=== PATIENT | female | born 1990 | race Two or more races ===

== ENCOUNTER 2022-06-19 07:16 | Outpatient (CLI) | payer OTHER | END 2022-06-19 07:18 | disposition home or self-care (01) | LOC: NUCLEAR 07:16 | PROVIDERS: ATTEND Internal Medicine Rheumatology | DX: M13.0 Polyarthritis, unspecified (principal); M05.79 Rheumatoid arthritis with rheumatoid factor of multiple sites without organ or systems involvement | CPT/HCPCS: 78315; A9503 ==